=== PATIENT | male | born 1950 | race Caucasian/White ===

== ENCOUNTER → 2017-11-15 | Outpatient (CLI) | payer OTHER, MEDICARE ==
--- NOTE | 2017-11-15 17:40 | DIREP ---
PROCEDURE:MRI - BRAIN WITHOUT CONTRAST COMPARISON:None. INDICATIONS:G45.9 TIA TECHNIQUE:A variety of imaging planes and parameters were utilized for visualization of suspected pathology in the brain. Images were performed without gadolinium contrast.. FINDINGS: CSF SPACES:Ventricles, cisterns, and sulci are appropriate for age. No hydrocephalus, subarachnoid hemorrhage, or mass. CEREBRUM:No edema, hemorrhage, mass, acute infarction, or inappropriate atrophy. Mild to moderate scattered hyperintense foci are present, typical for a patient of this age, most commonly caused by small vessel ischemic changes. CEREBELLUM:No edema, hemorrhage, mass, acute infarction, or inappropriate atrophy. BRAINSTEM:No edema, hemorrhage, mass, acute infarction, or inappropriate atrophy. SKULL:No mass or other significant visible lesion. SINUSES:Limited views demonstrate no significant mucosal thickening or fluid. OTHER:Remote left basal ganglia lacunar infarct. Normal vascular flow voids. CONCLUSION:Chronic changes noted. No acute infarct or hemorrhage. Otherwise, negative head MRI. Dictated by: Trent Griffin M.D. on 11/15/2017 at 04:22 PM Read in [place]
== END | disposition home or self-care (01) ==
LOC: MRI 15:32
PROVIDERS: ATTEND Emergency Medicine
DX: G45.9 Transient cerebral ischemic attack, unspecified (principal)
CPT/HCPCS: 70551